=== PATIENT | female | born 1970 | race Caucasian/White ===

== ENCOUNTER 2020-03-18 08:58 | Emergency (ER) | payer OTHER ==
[~2020-03-18] VITALS: Ht 160 cm; Wt 75.7 kg
[2020-03-18] MEDS ORDERED: VITAMIN D310 MC3 PO (09:06)
[2020-03-18] MEDS ORDERED: PRILOSEC OTC20 MG PO (09:06)
[2020-03-18] MEDS ORDERED: PERCOCET 5-3251 EACH PO (13:04)
== END 2020-03-18 13:16 | disposition home or self-care (01) ==
LOC: ER 08:58
DX: M25.511 Pain in right shoulder (principal); M62.838 Other muscle spasm